=== PATIENT | female | born 1965 | race Caucasian/White ===

== ENCOUNTER 2016-07-07 06:11 | Day surgery (SDC) | payer BC ==
[~2016-07-07 06:11] MED LIST: Buffered Lidocaine 1% SYRIN* 5 ML/SYR SYRINGE INTRADERM ONE; Dexamethasone IV* 4 MG/ML 1 ML (4 MG) IV SLOW PU ONE
[2016-07-07] MEDS ORDERED: ceFAZolin 2 GM PREMIX(*) 2 GM/50 ML BAG IVPB ONE (06:16)
[2016-07-07] MEDS ORDERED: Famotidine IV* 10 MG/ML 2 ML (20 mg) ONE (06:16)
[2016-07-07] MEDS ORDERED: Dexamethasone IV* 4 MG/ML 1 ML (4 MG) ONE (06:16)
[2016-07-07] MEDS ORDERED: Buffered Lidocaine 1% SYRIN* 5 ML/SYR SYRINGE ONE (06:17)
[2016-07-07] MEDS ORDERED: fentaNYL* 50 MCG/ML 2 ML VIAL (100 MCG VIAL) ONE ×4 (06:45→09:22)
[2016-07-07] MEDS ORDERED: HYDROmorphone* 1 MG/ML 1 ML SYR ONE ×3 (06:45→07:27)
[2016-07-07] MEDS ORDERED: Midazolam* 1 MG/ML 2 ML VIAL (2 MG) ONE (06:46)
[2016-07-07] MEDS ORDERED: Bupivacaine 0.5% SDV PF* 30 ML VIAL ONE ×2 (06:55→07:17)
[2016-07-07] MEDS ORDERED: Propofol* 10 MG/ML 20 ML BTL IV PUSH ONE (06:56)
[2016-07-07] MEDS ORDERED: Ketorolac INJ* 30 MG/ML 1 ML VIAL ONE (06:56)
[2016-07-07] MEDS ORDERED: Lidocaine 2% PF * 5 ML VIAL ONE (06:56)
[2016-07-07] MEDS ORDERED: Ondansetron INJ* 2 MG/ML VIAL ONE (06:56)
[2016-07-07] MEDS: Famotidine IV* 10 MG/ML 2 ML (20 mg) IV ONE (07:18)
[2016-07-07] MEDS ORDERED: Ondansetron INJ* 2 MG/ML VIAL IV PRN (07:39)
[2016-07-07] MEDS ORDERED: PROCHLORPERAZINE INJ 5 MG/ML 2 ML VIAL IV PRN (07:39)
[2016-07-07] MEDS ORDERED: HYDROmorphone* 1 MG/ML 1 ML SYR IV PRN (07:39)
[2016-07-07] MEDS ORDERED: Scopolamine 1.5 mg* PATCH TRANSDERM PRN (07:39)
[2016-07-07] MEDS ORDERED: fentaNYL* 50 MCG/ML 2 ML VIAL (100 MCG VIAL) IV PRN (07:39)
[2016-07-07] MEDS ORDERED: DiMENhydriNATE IV* 50 MG/ML VIAL IV PUSH PRN (07:39)
[2016-07-07] MEDS ORDERED: Meperidine SYRINGE* 50 MG/ML ONE (08:06)
[2016-07-07] MEDS ORDERED: oxyCODONE TAB* 5 MG TAB ONE (10:15)
[2016-07-07 11:09] VITALS: BP 118/62
--- NOTE | 2016-07-07 22:44 | RAD ---
CPT II Codes: 6045F INDICATION: Imaging during left ankle osteochondritis dissecans repair TECHNIQUE: Intraoperative fluoroscopy was provided during left ankle osteochondritis dissecans repair.. FINDINGS: A single spot film depicts the left ankle in the lateral projection. There are skin deyanira overlying the dorsal portion of the ankle. Fluoroscopy time: 1.1 second IMPRESSION: As above.
--- NOTE | 2016-07-08 12:38 | OP ---
OPERATIVE REPORT: DATE OF OPERATION: 07/07/16 - [facility] DATE OF : 69 SURGEON: Ulices Nolan MD MANAGER DIGITAL AD OPERATIONS: Altagracia Sneed PA-C ANESTHESIOLOGIST: Dr. Kuldeep Castaneda. ANESTHESIA: General with nerve block. PRE-OP DIAGNOSIS: Left medial talar osteochondritis dissecans, left lateral ankle instability, and painful os trigonum. POST-OP DIAGNOSIS: Left medial talar osteochondritis dissecans, left lateral ankle instability, and painful os trigonum. OPERATIVE PROCEDURES: 1. Excision of os trigonum, left ankle. 2. Repair of ankle ligament. 3. Allograft repair of medial talar OCD. DESCRIPTION OF PROCEDURE: The patient was taken to the operating room where thigh high tourniquet was applied. We made a medial longitudinal incision of 5 cm in length along the medial malleolus reflecting the anterior capsule away from the anterior aspect of the tibiotalar joint. A small Horacio osteotome was used to remove the couple of millimeters from the anterior edge of the axilla and then a Hintermann retractor was used with 0.062 C-wires to draw the talus anteriorly. We were able to repair the defect with a 6-mm chisel of the Mosaic[employer] kit and matching this with fresh osteochondral allograft. This was driven and flushed with the talar surface. We then irrigated this area thoroughly repairing the capsule with 2-0 Vicryl sutures, 2-0 subcutaneous, and deyanira for the skin. We then made a longitudinal incision over the distal fibula reflecting the capsule away from the anterior distal fibular cortex. We also opened up the peroneal sheath subluxing the peroneus anteriorly on a Christine drain. This allowed clear visualization of the posterolateral ankle recess where the large os trigonum was removed. We then left the anterior and distal capsule up firm into the distal fibula using 3 bone sutures of #1 Vicryl with a Heriberto-Jh repair. Capsules appeared to be reasonably santiago and so we did not use the allograft. We also put 1 suture through bone at the peroneal retinaculum, which held the peroneal tendons firmly within the groove. This lateral wound was then irrigated with 0- Vicryl and closed with deyanira and a compression dressing, plaster splint applied. [id number]/CPS #: [id number] MTDD
[2016-07-10] MEDS ORDERED: Scopolomine PATCH Remove* 1 NOTE MISC PATCH OFF ONE (07:39)
== END 2016-07-07 11:17 | disposition home or self-care (01) ==
LOC: OR 06:11
PROVIDERS: ATTEND Orthopaedic Surgery
DX: M93.272 Osteochondritis dissecans, left ankle and joints of left foot (principal); M25.372 Other instability, left ankle; M89.8X7 Other specified disorders of bone, ankle and foot; R01.1 Cardiac murmur, unspecified; J45.909 Unspecified asthma, uncomplicated; M19.90 Unspecified osteoarthritis, unspecified site
CPT/HCPCS: 76001; A9270-GY; C1776; J0690; J1100; J1170; J1885; J2250; J2405; J2704; J3010

== ENCOUNTER 2016-07-12 20:19 | Emergency (ER) | payer BC ==
[2016-07-12] MEDS ORDERED: LORazepam TAB(*) 1 MG PO ONE (21:10)
--- NOTE | 2016-07-12 21:36 | ED ---
Herrera Jay Rebecca, scribed for Eve Wright MD on 07/12/16 at 2043 . Complex/Multi-Sys Presentation - HPI Summary HPI Summary: Pt is a 51 y/o F who presents to ED for a cast splitting and application of an anshu wrap. Pt had surgery last Thursday (5 days ago) to repair a ligament, cartilage and fracture in her left ankle. She had a permanent cast applied 2 days ago and she has been experiencing severe anxiety since the application of the cast. Reports anxiety concerning being trapped in the cast. Sx aggravated and alleviated by nothing. Additionally c/o pain in the incisions, describing it as being moderate, ranked 4/10. Pt has been taking 1 mg oxycodone at night for the pain, along with Ibuprofen every 4 hours. Reports she has 1 mg tablets of Valium that she takes if her anxiety worsens or experiences a breakthrough seizure, but was advised not to take it along with the oxycodone. ) - History Of Current Complaint Chief Complaint: EDGeneral Time Seen by Provider: 07/12/16 20:31 Hx Obtained From: Patient Onset/Duration: Still Present Timing: Constant Severity Currently: Moderate Severity Initially: Moderate Location: Pain At: - Incision sites from surgery Aggravating Factor(s): Nothing Alleviating Factor(s): Anxiety - nothing; Pain - oxycodone and Ibuprofen Associated Signs And Symptoms: Positive: Other - Anxiety concerning cast - Allergies/Home Medications Allergies/Adverse Reactions: Allergies Allergy/AdvReac Type Severity Reaction Status Date / Time Adhesive Tape Allergy Severe Blisters Verified 07/01/16 11:53 Carbamazepine [From Tegretol] Allergy Severe Hives Verified 07/01/16 11:53 Phenobarbital Allergy Severe Hives Verified 07/01/16 11:53 Valproic Acid [From Depakote] Allergy Severe Hives Verified 07/01/16 11:53 Erythromycin Allergy Intermediate Rash And Verified 07/07/16 06:59 Itching Cimetidine Allergy Unknown See Comment Verified 07/07/16 06:28 [From Tagamet (Premixed] Latex Allergy Unknown See Comment Verified 07/01/16 11:54 PMH/Surg Hx/FS Hx/Imm Hx Endocrine/Hematology History: Denies: Hx Diabetes Cardiovascular History: Denies: Hx Hypertension, Hx Pacemaker/ICD Respiratory History: Reports: Other Respiratory Problems/Disorders GI History: Reports: Hx Gastroesophageal Reflux Disease History: Denies: Hx Renal Disease Musculoskeletal History: Reports: Hx Arthritis - LEFT FOOT, LEFT KNEE, Other Musculoskeletal History - 09/2015 FELL INJURING LEFT FOOT/ANKLE Sensory History: Reports: Hx Contacts or Glasses - READING ONLY Denies: Hx Cataracts, Hx Glaucoma, Hx Hearing Aid Opthamlomology History: Reports: Hx Contacts or Glasses - READING ONLY Denies: Hx Cataracts, Hx Glaucoma Neurological History: Reports: Hx Seizures - DX AT 13 YRS OF AGE, WELL CONTROLLED WITH RX, NO RECENT SEIZURE, Other Neuro Impairments/Disorders - TINGLING IN LEFT FOOT/ANKLE R/T INJURY 09/2015 Psychiatric History: Denies: Hx Panic Disorder - Surgical History Surgery Procedure, Year, and Place: 1973 TONSILS/ADENOIDS [facility]. 1991 APPENDECTOMY [facility] [place]. 1993 HYSTERECTOMY [facility] [place]. 2002 CHOLECYSTECTOMY [facility] Anesthesia Reactions: Yes - NAUSEA POST OP Infectious Disease History: Denies: Traveled Outside the [place] in Last 30 Days - Family History Known Family History: Positive: Other - [place] (aunt) - Social History Lives: With Family Alcohol Use: Occasionally Alcohol Amount: 1 DRINK EVERY 2 MONTHS Substance Use Type: Reports: None Smoking Status (MU): Former Smoker Type: Cigarettes Amount Used/How Often: 1 PPD FOR 15 YRS Have You Smoked in the Last Year: No Review of Systems Positive: Other - Pain at the sites of inc[place] from surgery Positive: Anxious - Concerning the presence of the cast All Other Systems Reviewed And Are Negative: Yes Physical Exam - Summary Physical Exam Summary: General: Well appearing, no pain distress Skin: Warm, Skin Color Reflects Adequate Perfusion, Dry Eyes: EOMI, RALPH ENT: Pharynx normal, TMs normal Neck: Supple, nontender Respiratory: CTA, breath sounds present, no rhonchi, no wheezes, no rales Cardiovascular: RRR, no murmur, no rub, no gallop Abdomen: Soft, nontender, Non-distended, no guarding, no rebound Bowel: Present Musculoskeletal: ERAN, No edema Neuro: Sensory/motor intact, A&Ox3, CN intact 2-12 Psych: Affect/mood appropriate Triage Information Reviewed: Yes Vital Signs On Initial Exam: Initial Vitals Temp Pulse Resp BP Pulse Ox 99.2 F 74 18 149/80 99 07/12/16 20:21 07/12/16 20:21 07/12/16 20:21 07/12/16 20:21 07/12/16 20:21 Vital Signs Reviewed: Yes Procedures - Procedure Summary Procedure Summary: Cast splitting done on pt. Cast split using a cast cutter. It was then wrapped with an Anshu bandage and pt was administered Ativan. Diagnostics - Vital Signs Vital Signs Temp Pulse Resp BP Pulse Ox 07/12/16 20:21 99.2 F 74 18 149/80 99 - Laboratory Lab Statement: Any lab studies that have been ordered have been reviewed, and results considered in the medical decision making process. Complex Multi-Symp Course/Dx Course Of Treatment: cast was bivalved and then split in just a few areas with anshu wrap bandage, pt given 1mg of ativan and does have ativan at home. foot is nvi Assessment/Plan: Patient medications reviewed this visit. - Diagnoses Provider Diagnoses: Problem with fiberglass cast Discharge - Discharge Plan Condition: Stable Disposition: HOME Patient Education Materials: Cast Care (ED) Referrals: Stephanie Randhawa MD [Primary Care Provider] - 3 Days The documentation as recorded by the Herrera champion Rebecca accurately reflects the service I personally performed and the decisions made by , Eve Wright MD.
[2016-07-12 21:44] VITALS: BP 146/63
== END 2016-07-12 21:42 | disposition home or self-care (01) ==
LOC: ED 20:19
DX: Z46.89 Encounter for fitting and adjustment of other specified devices (principal); F41.9 Anxiety disorder, unspecified; Z87.891 Personal history of nicotine dependence
CPT/HCPCS: 99282; A9270-GY